=== PATIENT | male | born 1975 | race Caucasian/White ===

== ENCOUNTER 2021-12-28 13:02 | Emergency (ER) | payer OTHER, SELFPAY ==
--- NOTE | 2021-12-28 13:12 | ED.NAVMDI ---
HPI - Nausea/Vomiting/Diarrhea General Chief complaint: Nausea/Vomiting/Diarrhea Stated complaint: HBP, nausea, dizzy Time Seen by Provider: 12/28/21 13:12 Source: patient Mode of arrival: ambulatory Limitations: no limitations History of Present Illness HPI Narrative: Mr. Page is a 46 year old male patient presenting to the clinic today with c/o high blood pressure, nausea, headache, and dizziness x 2 days. He reports no chest pain or shortness of breath. Is seeing a shot man and is suppose to be wearing a Holter monitor for 4 weeks however, he is not currently wearing it at this time. States that the electrodes are causing a rash. He describes the dizziness as feeling unbalanced. Took his blood pressure yesterday and his pressures was 160s over 100s. Today in the clinic is 142/93. Related Data Home Medications Medication Instructions Recorded Confirmed testosterone cypionate 200 mg/mL 200 mg IM WEEKLY 12/28/21 12/28/21 intramuscular oil Allergies Allergy/AdvReac Type Severity Reaction Status Date / Time OLIVIA Inhibitors AdvReac Unknown Other Verified 12/28/21 13:53 Review of Systems Review of Systems: Pertinent positives per HPI. Patient denies any fever, chills, rash, visual changes, cough, runny nose, sore throat, shortness of breath, chest pain, palpitations, vomiting, diarrhea, constipation, abdominal pain, or any urinary issues. PMFSH Comments At the time of my signature, I reviewed and agree with the nursing past medical, surgical, social, and family history. There is no relevant family history pertinent to the patient complaint. Exam Narrative: General: Well-developed, well nourished, in no apparent distress Head: Normocephalic, atraumatic Eyes: Pupils equally round and reactive to light bilaterally, EOM intact, sclera and conjunctive clear, no discharge, lids normal Ears: TMs intact and clear, ear canals clear, no drainage, grossly hearing normal. Nose: Nares patent, clear nasal discharge, no inflammation, no sinus tenderness. Mouth: Oropharynx without lesions or masses, good dentition, MMM. Tongue midline, even rise and fall of uvula Neck: Supple, trachea midline, no enlargement of anterior or posterior cervical nodes, no thyroid masses or goiter palpable. Cardio: Regular rate and rhythm, s1 and s2 normal, no murmur appreciated. Resp: Clear to auscultation bilaterally anteriorly and posteriorly, no rhonchi, rales, wheezing or rubs Musculoskeletal: No deformity, non-tender to palpation, grossly normal range of motion, muscle strength strong and equal, peripheral pulse strong, no edema, no cyanosis, normal gait and station Neuro: Alert and oriented x4 with normal speech, no focal deficits, cranial nerves I through XII intact, muscle strength 5 out of 5, sensation intact bilaterally, negative Romberg test Course Course Emergency Course: Portions of this record may have been created with voice recognition software. Level of Care: Express Care Visit Vital Signs Vital signs: Vital Signs Temperature 36.4 C 12/28/21 13:15 Pulse Rate 65 12/28/21 13:15 Respiratory Rate 16 12/28/21 13:15 Blood Pressure 142/93 H 12/28/21 13:15 Pulse Oximetry 98 12/28/21 13:15 Temperature 36.4 C 12/28/21 13:15 Pulse Rate 65 12/28/21 13:15 Respiratory Rate 16 12/28/21 13:15 Blood Pressure 142/93 H 12/28/21 13:15 Pulse Oximetry 98 12/28/21 13:15 Vital signs reviewed MDM - Nausea/Vomiting/Diarrhea MDM Narrative Medical decision making narrative: At the time of visit patient is resting on the exam stretcher. EKG was performed and showed sinus bradycardia with heart rate 56 without ectopy. UA is negative for any protein or sign of infection. Offered to do flu testing in the clinic and patient declined. Offered to send patient to the emergency room for further workup/blood work and he declined. He would like to just get some blood pressure medications today. I will send
[2021-12-28 13:15] VITALS: BP 142/93; PULSE 65; RESP 16; TEMP 36.4; O2SAT 98
--- NOTE | 2021-12-28 13:35 | ECG_ITS ---
Measurements Intervals Thompson Rate: 56 P: 51 ND: 162 QRS: 66 QRSD: 102 T: 42 QT: 430 QTc: 419 Interpretive Statements SINUS BRADYCARDIA POSSIBLE LEFT VENTRICULAR HYPERTROPHY BORDERLINE ECG NO PREVIOUS ECG AVAILABLE FOR COMPARISON Electronically Signed On 12-28-2021 14:03:38 CDT by Adebayo Hare D.O.
== END 2021-12-28 13:58 | disposition home or self-care (01) ==
PROVIDERS: Emergency Provider Nurse Practitioner Family; PCP Family Medicine
DX: I10 Essential (primary) hypertension (principal); L23.1 Allergic contact dermatitis due to adhesives; R00.1 Bradycardia, unspecified
CPT/HCPCS: 81003; 93005; 99203; G0463

== ENCOUNTER 2023-10-09 11:23 | Outpatient (CLI) | payer OTHER, SELFPAY ==
--- NOTE | ~2023-10-09 | MR_ITS ---
EXAMINATION: MR knee RT wo con DATE: 10/09/2023 12:20 INDICATION: Acute tear of the lateral meniscus of the right knee TECHNIQUE: Magnetic resonance imaging (MRI) of the right knee was performed without intravenous contr ast. Sequences included coronal PD-weighted FSE, coronal PD-weighted FS FSE, sagittal T2-weighted FS E, sagittal PD-weighted FS FSE and axial PD weighted fat saturated FSE. COMPARISON: None. FINDINGS: Medial compartment: Medial meniscus is normal. Articular cartilage is normal. Lateral compartment: Lateral meniscus is normal. Articular cartilage is normal. Patellofemoral compartment: Deep chondral ulceration/defect measuring 10 mm medial to lateral and 8 mm craniocaudally with minima l underlying subarticular edema-like signal change at the superomedial aspect of the lateral trochlea and cephalad aspect of the trochlear groove. Additional chondral ulceration with deep fissuring with cortical irregularity, mild subarticular cystlike and edema-like changes at the patellar apical ridg e extending into the inferior aspect of the medial patellar facet. Cartilage at the medial trochlea a nd lateral patellar facet are normal. Ligaments and tendons: Anterior and posterior cruciate ligaments are normal. The medial collateral ligament and fibular svitlana ateral ligament complex are normal. Patellar tendon is normal. Mild distal quadriceps tendinopathy wi thout tear. The visualized medial and lateral hamstring tendons as well as the iliotibial band are no rmal. Fluid: Physiologic amount of fluid in the joint space. No loose osteochondral bodies identified. Moderate si zed Nguyen's cyst measuring 5.3 x 2.1 x 1.8 cm. Osseous/other: Bone alignment is normal. No fracture or pathologic marrow replacing process. IMPRESSION: 1. 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 2. Normal menisci and cartilage in the medial lateral compartments. 3. Moderate-sized Nguyen's cyst. Reviewed, dictated and finalized at location A. IMPRESSION: 1. 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 2. Normal menisci and cartilage in the medial lateral compartments. 3. Moderate-sized Nguyen's cyst.
== END 2023-10-09 11:24 ==
LOC: GOSHIMG 11:25
PROVIDERS: Visit Provider Physician Assistant
DX: M17.11 Unilateral primary osteoarthritis, right knee (principal); M94.261 Chondromalacia, right knee; M71.21 Synovial cyst of popliteal space [Baker], right knee
CPT/HCPCS: 73721